=== PATIENT | female | born 1970 | race African-American/Black ===

== ENCOUNTER 2019-10-12 20:30 | Emergency (ER) | payer OTHER, MEDICAID ==
[~2019-10-12] VITALS: Ht 167.6 cm; Wt 90.7 kg
--- NOTE | 2019-10-12 20:41 | NUR ---
PT BIB [facility] FOR C/O OF CP / THAT DOES NOT RADIATE TO ANYWHERE ELSE. STATES SHE WOKE UP FROM A NAP AFTER DINNER AND STARTED FEELING PAIN. SHE STATES THAT SHE HAD TROUBLE BREATHING. CURRENT 02 SAT AT 100% ON ROOM AIR. ALSO C/O OF BACK PAIN / NON RELATED TO CHEST PAIN. CURRENTLY HAS 7/10 CHEST PAIN. NO SOB. BREATHING EVEN AND UNLABORED. NOT IN ANY DISTRESS. CONNECTED TO MONITOR. AWAITING MD VALLES.
--- NOTE | 2019-10-12 20:51 | NUR ---
DR. HARDING AT BEDSIDE FOR EVAL
--- NOTE | 2019-10-12 20:57 | NUR ---
BLOOD SENT TO LAB
[2019-10-12 21:18] LABS: BASOPHILS % (AUTO) 0.6 % (0.0-2.0); EOSINOPHILS % (AUTO) 1.9 % (0.0-6.0); HEMATOCRIT 37 % (33-45); HEMOGLOBIN 12.8 g/dL (11.5-14.8); LYMPHOCYTES # (AUTO) 2.5 /CMM (0.8-4.8); LYMPHOCYTES % (AUTO) 41.7 % (20.0-44.0); MEAN CORPUSCULAR HGB CONC 34 g/dl (31.0-36.0); MEAN CORPUSCULAR VOLUME 81 fL (82-100); MONOCYTES # (AUTO) 0.5 /CMM (0.1-1.30); MONOCYTES % (AUTO) 8.5 % (2.0-12.0); NEUTROPHILS # (AUTO) 2.8 /CMM (1.8-8.9); NEUTROPHILS % (AUTO) 47.3 % (43.0-81.0); PLATELET COUNT (AUTO) 192 /CMM (150-450); RED BLOOD CELL COUNT(AUTO) 4.59 MIL/uL (4.0-5.2); WHITE BLOOD COUNT (AUTO) 5.9 K/uL (4.3-11.0)
[2019-10-12] MEDS ORDERED: PANTOPRAZOLE 40 MG VIAL IV ONE (21:30)
[2019-10-12] MEDS ORDERED: PANTOPRAZOLE 40 MG VIAL ONE (21:34)
[2019-10-12 21:39] LABS: CALCIUM, SERUM 8.8 mg/dL (8.5-10.1); CARBON DIOXIDE 27 mmol/L (21-32); CHLORIDE 107 mmol/L (98-107); CREATININE 0.8 mg/dL (0.6-1.3); GLUCOSE 106 mg/dL (74-106); POTASSIUM 3.8 mmol/L (3.5-5.1); SODIUM SERUM 140 mmol/L (136-145); UREA NITROGEN, BLOOD 14 mg/dL (7-18)
--- NOTE | 2019-10-12 21:59 | NUR ---
CALLED [facility], AWAITING CALL BACK FROM
[2019-10-12] MEDS ORDERED: NITROGLYCERIN PACKET 1 GM PACKET TOP ONE (22:00)
[2019-10-12] MEDS ORDERED: ASPIRIN 325 MG TABLET PO ONE (22:00)
[2019-10-12] MEDS ORDERED: ASPIRIN 325 MG TABLET ONE (22:01)
[2019-10-12] MEDS ORDERED: NITROGLYCERIN PACKET 1 GM PACKET ONE (22:01)
--- NOTE | 2019-10-12 22:08 | NUR ---
Ortiz orona in ED - 10/12/19 at 2224 by NICOLE TRANSPORT INFO: PT GOING TO [facility], ACCEPTED BY MAURICE CM [id number], RN FOR REPORT [phone]
--- NOTE | 2019-10-12 22:30 | NUR ---
VERBAL ORDER FROM DR. HARDING FOR 15MG IVP OF TORADOL IF HCG IS NEGATIVE.
[2019-10-12] MEDS ORDERED: KETOROLAC TROMETHAMINE 15 MG/ML VIAL ONE (22:42)
[2019-10-12] MEDS ORDERED: KETOROLAC TROMETHAMINE INJ 30 MG/ML VIAL IV ONE (23:00)
--- NOTE | 2019-10-12 23:11 | NUR ---
FAXED EKG TO YOMAIRA MYERS MD
--- NOTE | 2019-10-12 23:35 | NUR ---
PER [facility], STILL WAITING FOR ACCEPTING MD, WILL CALL BACK WITH MORE INFO WHEN AVAILABLE
--- NOTE | 2019-10-12 23:55 | NUR ---
PT C/O IV LEAKING. IV WAS PATENT AND BENIGN. NEW DRSG PUT ON IV SITE. PT REC'D 2 WARM BLANKETS. PT'S VSS. RESP EVEN AND UNLABORED. CALL LIGHT IS WITHIN REACH. WILL CONTINUE TO MONITOR THE PT.
--- NOTE | 2019-10-13 00:11 | NUR ---
CALLING [facility] RE: PT TRANSFER INFORMATION. WAITING FOR ACCEPTING MD.
--- NOTE | 2019-10-13 00:54 | NUR ---
CALLING [facility] (JB) WAITING FOR HOSPITALIST TO ACCEPT.
--- NOTE | 2019-10-13 00:57 | NUR ---
YOMAIRA MYERS MD IS CALLING TO SPEAK TO DR. GARCIA.
[2019-10-13] MEDS ORDERED: ENOXAPARIN SODIUM 100 MG/ML DISP.SYRIN SQ ONE (01:13)
--- NOTE | 2019-10-13 01:25 | NUR ---
CALL FROM [facility]. PT ACCEPTED TO [facility] ER BY DR MOSES. # FOR REPORT [phone]. ETA [id number]
[2019-10-13] MEDS ORDERED: ENOXAPARIN SODIUM 80 MG/0.8 ML DISP.SYRIN SQ ONE (01:30)
--- NOTE | 2019-10-13 01:59 | NUR ---
Ortiz orona in ED - 10/13/19 at 0200 by NELLA AURELIO Cuadra/ RONNELL COLON FOR [facility].
--- NOTE | 2019-10-13 02:00 | NUR ---
GAVE REPORT TO RONNELL COLON FOR [facility].
[2019-10-13 02:07] VITALS: BP 112/73
--- NOTE | 2019-10-13 02:39 | NUR ---
[facility]EDICS ARRIVED TO TRANSFER PATIENT TO [facility].
== END 2019-10-13 02:52 | disposition short-term general hospital (02) ==
LOC: ER 20:40
DX: R07.89 Other chest pain (principal); Z88.5 Allergy status to narcotic agent
CPT/HCPCS: 36415; 71045; 80048; 84484; 84702; 85025; 93005 ×3; 96372; 96374; 96375; 99285; C9113; J1650; J1885